=== PATIENT | male | born 1985 | race African-American/Black ===

== ENCOUNTER 2016-12-20 09:39 | Emergency (ER) | payer OTHER ==
[2016-12-20 09:50] VITALS: BP 118/68
--- NOTE | 2016-12-20 11:33 | RAD ---
Indication: Pain, swelling, limitation in flexion of the toes following crush injury 1.5 weeks ago. Comparison: None. Technique: AP, lateral, and oblique views LEFT foot Report: Oblique noncomminuted fracture through the mid diaphysis of the second metatarsal with up to 1 bone width cephalad displacement and mild anterior posterior override of the fracture fragments. No callus formation or other healing response evident. Negative for additional fracture. Normal articular alignment. Soft tissue swelling about the forefoot. IMPRESSION: Displaced second metatarsal diaphyseal fracture.
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
== END 2016-12-20 12:38 | disposition home or self-care (01) ==
LOC: ED 09:39
DX: S92.325A Nondisplaced fracture of second metatarsal bone, left foot, initial encounter for closed fracture (principal); R60.0 Localized edema; S90.32XA Contusion of left foot, initial encounter; W22.8XXA Striking against or struck by other objects, initial encounter; Y93.9 Activity, unspecified; Y92.9 Unspecified place or not applicable; Y99.9 Unspecified external cause status
CPT/HCPCS: 99282

== ENCOUNTER 2018-06-18 10:31 | Emergency (ER) | payer OTHER ==
[2018-06-18 13:28] VITALS: BP 122/67
--- NOTE | 2018-06-18 18:20 | ED ---
Upper Extremity Pain - HPI Summary HPI Summary: Patient is a 33-year-old male who presents emergency department for right upper arm pain 2 days. Patient states he was in the gym lifting weights 2 days ago. He states he gradually developed pain to his left upper arm. Patient states he expected to have soreness but pain is worse than normally after lifting. Patient states during his workout 2 days ago he had no pain and pain progressed the next day. He has no past medical history. Moving her makes symptoms worse. Patient states he has a very physical job and does heavy lifting daily. Patient states he was unable to lift heavy yesterday at work. Symptoms are mild in severity. - History of Current Complaint Chief Complaint: EDExtremityUpper Stated Complaint: LT ARM INJURY Time Seen by Provider: 06/18/18 11:47 Hx Obtained From: Patient - Allergies/Home Medications Allergies/Adverse Reactions: Allergies Allergy/AdvReac Type Severity Reaction Status Date / Time No Known Allergies Allergy Verified 06/18/18 11:41 PMH/Surg Hx/FS Hx/Imm Hx Previously Healthy: Yes Endocrine/Hematology History: Denies: Hx Diabetes Cardiovascular History: Denies: Hx Hypertension, Hx Pacemaker/ICD Respiratory History: Denies: Hx Asthma History: Denies: Hx Renal Disease Sensory History: Denies: Hx Hearing Aid Psychiatric History: Denies: Hx Panic Disorder Infectious Disease History: No Infectious Disease History: Denies: Traveled Outside the [place] in Last 30 Days - Family History Known Family History: Negative: Cardiac Disease, Hypertension, Diabetes - Social History Occupation: Employed Full-time Lives: With Family Alcohol Use: Rare Hx Substance Use: Yes Substance Use Type: Reports: Marijuana Substance Use Comment - Amount & Last Used: daily Hx Tobacco Use: No Smoking Status (MU): Never Smoked Tobacco Review of Systems Positive: Other - Left upper arm pain Negative: Weakness, Paresthesia, Numbness All Other Systems Reviewed And Are Negative: Yes Physical Exam Triage Information Reviewed: Yes Vital Signs On Initial Exam: Initial Vitals Temp Pulse Resp BP Pulse Ox 98.7 F 90 16 120/88 100 06/18/18 11:38 06/18/18 11:38 06/18/18 11:38 06/18/18 11:38 06/18/18 11:38 Vital Signs Reviewed: Yes Appearance: Positive: Well-Appearing - Pt. sitting on bed in NAD. Skin: Positive: Warm, Dry Head/Face: Positive: Normal Head/Face Inspection Eyes: Positive: Normal, EOMI Neck: Positive: Supple Musculoskeletal: Positive: Other - Left arm is neurovascularly intact with a good radial pulse. Pain on palpation over the left triceps. There is no erythema, edema, increased warmth, ecchymosis. Area is sore to palpation. There is a small nontender probable cysts noted to this area. Compartment is soft. Neurological: Positive: Normal, CN Intact II-III Diagnostics - Vital Signs Vital Signs Temp Pulse Resp BP Pulse Ox 06/18/18 13:27 98.2 F 78 16 122/67 98 06/18/18 11:38 98.7 F 90 16 120/88 100 - Laboratory Lab Statement: Any lab studies that have been ordered have been reviewed, and results considered in the medical decision making process. Course/Dx - Course Course Of Treatment: Patient presenting with pain to his left triceps after lifting heavy 2 days ago. Pain was gradual onset 1 day after lifting so I do not suspect tendon rupture. Advised patient though if pain does persist he will see orthopedics. Advised to ice and elevate over the weekend naproxen prescribed for pain. Rest excuse given. Patient to return to the ER if symptoms change or worsen. Patient understands and agrees with plan. - Diagnoses Differential Diagnosis/HQI/PQRI: Positive: Hematoma, Strain, Sprain Provider Diagnoses: Muscle strain Discharge - Sign-Out/Discharge Documenting (check all that apply): Patient Departure - Discharge Plan Condition: Good Disposition: HOME Prescriptions: Naproxen [Naproxen 500 mg tab] 500 mg PO BID #20 tablet Patient Education Materials: Muscle Strain (ED) Forms: *Work Release Referrals: Jeremy Rivas MD [Medical Doctor] - Isacc Estrella MD [Primary Care Provider] - Additional Instructions: Schedule a follow up appointment with Dr. Rivas on Thursday if pain persist Ice and elevate Naproxen for pain as directed Avoid heavy lifting Return to ER If symptoms change or worsen - Billing Disposition and Condition Condition: GOOD Disposition: Home
== END 2018-06-18 13:27 | disposition home or self-care (01) ==
LOC: ED 10:31
DX: S46.311A Strain of muscle, fascia and tendon of triceps, right arm, initial encounter (principal); X50.0XXA Overexertion from strenuous movement or load, initial encounter; Y93.B3 Activity, free weights; Y92.9 Unspecified place or not applicable
CPT/HCPCS: 99282